=== PATIENT | male | born 2000 | race Caucasian/White ===

== ENCOUNTER 2021-05-19 23:44 | Inpatient (IN) | payer SELFPAY ==
[~2021-05-19] VITALS: Ht 182.9 cm; Wt 137.9 kg
[2021-05-19] MEDS ORDERED: ACETAMINOPHEN 325MG TABLET PO STA (23:59)
[2021-05-20] MEDS ORDERED: CEFTRIAXONE 1 G PREMIX 50 ML IV ONE
[2021-05-20] MEDS ORDERED: SODIUM CHLORIDE 0.9% 1,000 ML IV ONE
[2021-05-20] MEDS ORDERED: AZITHROMYCIN 500 MG in DEXT 5% WATER 250 ML IV ONE
[2021-05-20 00:29] LABS: BASOPHILS % 0.4 % (0.0-2.0); HEMATOCRIT. 44.8 % (42.0-52.0); HEMOGLOBIN. 15.3 g/dL (14.0-18.0); LYMPHOCYTES % 9.4 % (20.0-50.0); MEAN CORPUSCULAR HEMOGLOBIN 27.7 pg (28.0-32.0); MEAN CORPUSCULAR VOLUME 81.1 fL (80.0-94.0); MEAN PLATELET VOLUME 7.3 fl (7.4-10.4); MONOCYTES % 3.7 % (2.0-8.0); NEUTROPHILS % 86.5 % (40.0-76.0); PLATELET 366 x1000/uL (130-400); RED BLOOD CELL COUNT 5.52 mill/uL (4.7-6.1); RED CELL DISTRIBUTION WIDTH 13.5 % (11.6-14.6)
[2021-05-20 00:38] LABS: CHLORIDE 98 mEq/L (98-107)
[2021-05-20] MEDS ORDERED: ACETAMINOPHEN 325MG TABLET PO PRN ×2 (06:30)
[2021-05-20] MEDS ORDERED: CLONIDINE 0.1MG TABLET PO PRN (06:30)
[2021-05-20] MEDS ORDERED: ALBUTEROL 6.7GM HFA INHALER ORI PRN (06:30)
[2021-05-20] MEDS ORDERED: ONDANSETRON HCL 4MG/2ML INJ IV PRN (06:30)
[2021-05-20] MEDS ORDERED: NITROGLYCERIN 0.4MG TABLET SL SL PRN (06:30)
[2021-05-20] MEDS ORDERED: MAGNESIUM/ALUMINUM HYDROXIDE/SIMETHICONE 30ML UDC PO PRN (06:30)
[2021-05-20] MEDS ORDERED: KETOROLAC 15MG/ML VIAL IV PRN (06:30)
[2021-05-20] MEDS ORDERED: AZITHROMYCIN 500 MG in DEXT 5% WATER 250 ML IV SCH (07:00)
[2021-05-20 07:16] LABS: FOLIC ACID (FOLATE) SERUM >20 ng/mL ng/mL (>5.38)
[2021-05-20 07:27] LABS: VITAMIN B12 SERUM 663 pg/mL (211-911)
[2021-05-20] MEDS ORDERED: CEFTRIAXONE 1 G PREMIX 50 ML IV SCH (09:00)
[2021-05-20] MEDS: FAMOTIDINE 20MG TABLET PO SCH ×2 (09:51→21:54)
[2021-05-20] MEDS: GUAIFENESIN/DM 600MG/30MG ER TAB 12HR PO SCH ×2 (09:51→21:53)
[2021-05-20] MEDS: CHOLECALCIFEROL (D3) 1000 UNIT TABLET PO SCH (09:51)
[2021-05-20] MEDS: GUAIFENESIN 200MG/10ML SUGAR FREE UDC PO PRN (09:52)
[2021-05-20] MEDS: ASCORBIC ACID 500 MG TABLET PO SCH ×2 (09:52→21:54)
[2021-05-20] MEDS: ZINC SULFATE 220 MG ( 50 ) CAPSULE PO SCH (09:52)
[2021-05-20 12:00] VITALS: BP 115/65
[2021-05-20 16:00] VITALS: BP 113/57
[2021-05-20 18:50] LABS: CREATINE KINASE MB FRACTION 5.1 ng/mL (0.5-3.6)
[2021-05-20 20:00] VITALS: BP 129/68
[2021-05-20] MEDS ORDERED: ZOLPIDEM TARTRATE 5MG TABLET PO PRN (21:00)
[2021-05-20] MEDS: CEFTRIAXONE 1,000 MG in DEXTROSE 5% WATER 50 ML IV SCH (21:54)
[2021-05-20] MEDS: DEXAMETHASONE 10 MG/ML VIAL IV SCH (22:45)
[2021-05-20 23:32] LABS: CREATINE KINASE MB FRACTION 4.5 ng/mL (0.5-3.6)
[2021-05-20 23:49] LABS: CREATINE KINASE 4509 IU/L (39-308)
[2021-05-21] VITALS: BP 122/67
[2021-05-21] MEDS: ALBUTEROL 6.7GM HFA INHALER ORI SCH ×4 (00:03→18:56)
[2021-05-21 04:00] VITALS: BP 120/72
[2021-05-21] MEDS: AZITHROMYCIN 500 MG in DEXT 5% WATER 250 ML IV SCH (05:57)
[2021-05-21] MEDS: GUAIFENESIN 200MG/10ML SUGAR FREE UDC PO PRN (06:05)
[2021-05-21 06:30] LABS: CHLORIDE 102 mEq/L (98-107)
[2021-05-21 06:36] LABS: PHOSPHORUS 3.8 mg/dL (2.5-4.9)
[2021-05-21 06:47] LABS: BASOPHILS % 0.1 % (0.0-2.0); HEMATOCRIT. 42.5 % (42.0-52.0); HEMOGLOBIN. 14.2 g/dL (14.0-18.0); LYMPHOCYTES % 9.6 % (20.0-50.0); MEAN CORPUSCULAR HEMOGLOBIN 28.2 pg (28.0-32.0); MEAN CORPUSCULAR VOLUME 84.1 fL (80.0-94.0); MONOCYTES % 3.3 % (2.0-8.0); PLATELET 417 x1000/uL (130-400); RED BLOOD CELL COUNT 5.05 mill/uL (4.7-6.1)
[2021-05-21 08:00] VITALS: BP 110/65
[2021-05-21] MEDS: DEXAMETHASONE 10 MG/ML VIAL IV SCH (09:27)
[2021-05-21] MEDS: CHOLECALCIFEROL (D3) 1000 UNIT TABLET PO SCH (09:27)
[2021-05-21] MEDS: GUAIFENESIN/DM 600MG/30MG ER TAB 12HR PO SCH ×2 (09:27→19:49)
[2021-05-21] MEDS: ZINC SULFATE 220 MG ( 50 ) CAPSULE PO SCH (09:27)
[2021-05-21] MEDS: FAMOTIDINE 20MG TABLET PO SCH ×2 (09:27→19:49)
[2021-05-21] MEDS: ASCORBIC ACID 500 MG TABLET PO SCH ×2 (09:27→19:49)
[2021-05-21 12:00] VITALS: BP 107/68
[2021-05-21 16:00] VITALS: BP 106/55
[2021-05-21] MEDS: CEFTRIAXONE 1,000 MG in DEXTROSE 5% WATER 50 ML IV SCH (19:49)
[2021-05-21 20:00] VITALS: BP 98/50
[2021-05-22] MEDS: ALBUTEROL 6.7GM HFA INHALER ORI SCH ×4 (05:43→19:55)
[2021-05-22] MEDS: AZITHROMYCIN 500 MG in DEXT 5% WATER 250 ML IV SCH (05:43)
[2021-05-22 08:00] VITALS: BP 107/56
[2021-05-22] MEDS: ZINC SULFATE 220 MG ( 50 ) CAPSULE PO SCH (08:02)
[2021-05-22] MEDS: ASCORBIC ACID 500 MG TABLET PO SCH ×2 (08:03→19:54)
[2021-05-22] MEDS: CHOLECALCIFEROL (D3) 1000 UNIT TABLET PO SCH (08:03)
[2021-05-22] MEDS: FAMOTIDINE 20MG TABLET PO SCH ×2 (08:03→19:54)
[2021-05-22] MEDS: DEXAMETHASONE 10 MG/ML VIAL IV SCH (08:03)
[2021-05-22] MEDS: GUAIFENESIN/DM 600MG/30MG ER TAB 12HR PO SCH ×2 (08:03→19:54)
[2021-05-22 11:14] LABS: CREATINE KINASE 867 IU/L (39-308)
[2021-05-22 12:00] VITALS: BP 113/65
[2021-05-22 16:00] VITALS: BP 104/59
[2021-05-22] MEDS: CEFTRIAXONE 1,000 MG in DEXTROSE 5% WATER 50 ML IV SCH (19:54)
[2021-05-23] MEDS: ALBUTEROL 6.7GM HFA INHALER ORI SCH ×2 (00:14→05:32)
[2021-05-23 04:00] VITALS: BP 96/45
[2021-05-23] MEDS: AZITHROMYCIN 500 MG in DEXT 5% WATER 250 ML IV SCH (05:32)
[2021-05-23 05:51] LABS: CHLORIDE 104 mEq/L (98-107)
[2021-05-23 06:11] LABS: BASOPHILS % 0.2 % (0.0-2.0); EOSINOPHILS % 0.1 % (0.0-5.0); HEMATOCRIT. 40.8 % (42.0-52.0); HEMOGLOBIN. 13.9 g/dL (14.0-18.0); LYMPHOCYTES % 8.8 % (20.0-50.0); MEAN CORPUSCULAR VOLUME 82.6 fL (80.0-94.0); MEAN PLATELET VOLUME 7.7 fl (7.4-10.4); MONOCYTES % 5.5 % (2.0-8.0); NEUTROPHILS % 85.4 % (40.0-76.0); PLATELET 591 x1000/uL (130-400); RED BLOOD CELL COUNT 4.94 mill/uL (4.7-6.1)
[2021-05-23 08:00] VITALS: BP 103/56
[2021-05-23] MEDS: GUAIFENESIN/DM 600MG/30MG ER TAB 12HR PO SCH ×2 (08:43→20:41)
[2021-05-23] MEDS: FAMOTIDINE 20MG TABLET PO SCH ×2 (08:43→20:41)
[2021-05-23] MEDS: CHOLECALCIFEROL (D3) 1000 UNIT TABLET PO SCH (08:43)
[2021-05-23] MEDS: DEXAMETHASONE 10 MG/ML VIAL IV SCH (08:43)
[2021-05-23] MEDS: ZINC SULFATE 220 MG ( 50 ) CAPSULE PO SCH (08:43)
[2021-05-23] MEDS: ASCORBIC ACID 500 MG TABLET PO SCH ×2 (08:43→20:41)
[2021-05-23 12:00] VITALS: BP 113/61
[2021-05-23 16:00] VITALS: BP 110/69
[2021-05-23 20:00] VITALS: BP 113/68
[2021-05-23] MEDS: CEFTRIAXONE 1,000 MG in DEXTROSE 5% WATER 50 ML IV SCH (20:40)
[2021-05-23] MEDS: GUAIFENESIN 200MG/10ML SUGAR FREE UDC PO PRN (20:48)
[2021-05-24] VITALS: BP 103/53
[2021-05-24 04:00] VITALS: BP 105/65
[2021-05-24 08:00] VITALS: BP 107/60
[2021-05-24] MEDS: ZINC SULFATE 220 MG ( 50 ) CAPSULE PO SCH (08:08)
[2021-05-24] MEDS: GUAIFENESIN 200MG/10ML SUGAR FREE UDC PO PRN ×2 (08:08→17:08)
[2021-05-24] MEDS: ASCORBIC ACID 500 MG TABLET PO SCH ×2 (08:09→20:18)
[2021-05-24] MEDS: GUAIFENESIN/DM 600MG/30MG ER TAB 12HR PO SCH ×2 (08:09→20:18)
[2021-05-24] MEDS: DEXAMETHASONE 10 MG/ML VIAL IV SCH (08:09)
[2021-05-24] MEDS: FAMOTIDINE 20MG TABLET PO SCH ×2 (08:09→20:18)
[2021-05-24] MEDS: CHOLECALCIFEROL (D3) 1000 UNIT TABLET PO SCH (08:09)
[2021-05-24] MEDS: ALBUTEROL 6.7GM HFA INHALER ORI SCH ×2 (11:46→17:08)
[2021-05-24 12:00] VITALS: BP 108/61
[2021-05-24 16:00] VITALS: BP 106/63
[2021-05-24] MEDS ORDERED: LOPERAMIDE HCL 2MG CAPSULE PO PRN (17:00)
[2021-05-24 20:00] VITALS: BP 114/59
[2021-05-24] MEDS: CEFTRIAXONE 1,000 MG in DEXTROSE 5% WATER 50 ML IV SCH (20:18)
[2021-05-25] VITALS: BP 113/68
[2021-05-25] MEDS: ALBUTEROL 6.7GM HFA INHALER ORI SCH ×4 (00:30→17:03)
[2021-05-25 04:00] VITALS: BP 115/65
[2021-05-25 07:58] VITALS: BP 118/67
[2021-05-25] MEDS: GUAIFENESIN 200MG/10ML SUGAR FREE UDC PO PRN (08:00)
[2021-05-25] MEDS: CHOLECALCIFEROL (D3) 1000 UNIT TABLET PO SCH (08:00)
[2021-05-25] MEDS: FAMOTIDINE 20MG TABLET PO SCH ×2 (08:00→20:39)
[2021-05-25] MEDS: ZINC SULFATE 220 MG ( 50 ) CAPSULE PO SCH (08:00)
[2021-05-25] MEDS: DEXAMETHASONE 10 MG/ML VIAL IV SCH (08:00)
[2021-05-25] MEDS: ASCORBIC ACID 500 MG TABLET PO SCH ×2 (08:00→20:38)
[2021-05-25] MEDS: GUAIFENESIN/DM 600MG/30MG ER TAB 12HR PO SCH ×2 (08:00→20:39)
[2021-05-25 12:00] VITALS: BP 108/62
[2021-05-25 16:00] VITALS: BP 112/63
[2021-05-25 20:00] VITALS: BP 116/60
[2021-05-25] MEDS: CEFTRIAXONE 1,000 MG in DEXTROSE 5% WATER 50 ML IV SCH (20:38)
[2021-05-26] VITALS: BP 115/63
[2021-05-26 04:00] VITALS: BP 107/54
[2021-05-26] MEDS: ALBUTEROL 6.7GM HFA INHALER ORI SCH ×4 (05:30→17:44)
[2021-05-26 06:58] LABS: HEMATOCRIT. 43.1 % (42.0-52.0); HEMOGLOBIN. 14.5 g/dL (14.0-18.0); MEAN CORPUSCULAR HEMOGLOBIN 27.9 pg (28.0-32.0); MEAN CORPUSCULAR VOLUME 83.2 fL (80.0-94.0); MEAN PLATELET VOLUME 7.1 fl (7.4-10.4); PLATELET 536 x1000/uL (130-400); RED BLOOD CELL COUNT 5.18 mill/uL (4.7-6.1); RED CELL DISTRIBUTION WIDTH 13.2 % (11.6-14.6)
[2021-05-26 07:01] LABS: CHLORIDE 105 mEq/L (98-107)
[2021-05-26 08:00] VITALS: BP 108/58
[2021-05-26] MEDS: CHOLECALCIFEROL (D3) 1000 UNIT TABLET PO SCH (08:01)
[2021-05-26] MEDS: ASCORBIC ACID 500 MG TABLET PO SCH ×2 (08:02→20:52)
[2021-05-26] MEDS: ZINC SULFATE 220 MG ( 50 ) CAPSULE PO SCH (08:02)
[2021-05-26] MEDS: GUAIFENESIN/DM 600MG/30MG ER TAB 12HR PO SCH ×2 (08:02→20:52)
[2021-05-26] MEDS: FAMOTIDINE 20MG TABLET PO SCH ×2 (08:02→20:52)
[2021-05-26] MEDS: DEXAMETHASONE 10 MG/ML VIAL IV SCH (08:02)
[2021-05-26 12:00] VITALS: BP 110/57
[2021-05-26 16:00] VITALS: BP 107/58
[2021-05-26 17:56] LABS: PLATELET ESTIMATE INCREASED
[2021-05-26 20:00] VITALS: BP 110/59
[2021-05-27] VITALS: BP 108/71
[2021-05-27 04:00] VITALS: BP 115/73
[2021-05-27] MEDS: ALBUTEROL 6.7GM HFA INHALER ORI SCH ×4 (06:02→17:20)
[2021-05-27 08:00] VITALS: BP 102/64
[2021-05-27] MEDS: FAMOTIDINE 20MG TABLET PO SCH ×2 (10:06→22:06)
[2021-05-27] MEDS: CHOLECALCIFEROL (D3) 1000 UNIT TABLET PO SCH (10:06)
[2021-05-27] MEDS: GUAIFENESIN/DM 600MG/30MG ER TAB 12HR PO SCH ×2 (10:06→22:05)
[2021-05-27] MEDS: DEXAMETHASONE 10 MG/ML VIAL IV SCH (10:06)
[2021-05-27] MEDS: ZINC SULFATE 220 MG ( 50 ) CAPSULE PO SCH (10:07)
[2021-05-27] MEDS: ASCORBIC ACID 500 MG TABLET PO SCH ×2 (10:07→22:06)
[2021-05-27 12:00] VITALS: BP 109/63
[2021-05-27 16:00] VITALS: BP 111/65
[2021-05-27 20:00] VITALS: BP 112/55
[2021-05-28] VITALS: BP 100/65
[2021-05-28] MEDS: ALBUTEROL 6.7GM HFA INHALER ORI SCH ×4 (00:09→18:39)
[2021-05-28 04:00] VITALS: BP 112/53
[2021-05-28 08:00] VITALS: BP 111/58
[2021-05-28] MEDS: ASCORBIC ACID 500 MG TABLET PO SCH ×2 (08:49→20:41)
[2021-05-28] MEDS: ZINC SULFATE 220 MG ( 50 ) CAPSULE PO SCH (08:49)
[2021-05-28] MEDS: DEXAMETHASONE 10 MG/ML VIAL IV SCH (08:49)
[2021-05-28] MEDS: CHOLECALCIFEROL (D3) 1000 UNIT TABLET PO SCH (08:49)
[2021-05-28] MEDS: GUAIFENESIN/DM 600MG/30MG ER TAB 12HR PO SCH ×2 (08:49→20:41)
[2021-05-28] MEDS: FAMOTIDINE 20MG TABLET PO SCH ×2 (08:49→20:41)
[2021-05-28 12:00] VITALS: BP 98/57
[2021-05-28 16:00] VITALS: BP 95/59
[2021-05-28 20:00] VITALS: BP 109/53
[2021-05-28] MEDS: GUAIFENESIN 200MG/10ML SUGAR FREE UDC PO PRN (20:50)
[2021-05-29] MEDS: ALBUTEROL 6.7GM HFA INHALER ORI SCH ×4 (00:17→17:29)
[2021-05-29 00:40] VITALS: BP 101/61
[2021-05-29] MEDS: GUAIFENESIN 200MG/10ML SUGAR FREE UDC PO PRN ×2 (02:15→21:15)
[2021-05-29 04:00] VITALS: BP 108/57
[2021-05-29 08:00] VITALS: BP 101/53
[2021-05-29] MEDS: FAMOTIDINE 20MG TABLET PO SCH ×2 (08:49→21:10)
[2021-05-29] MEDS: ZINC SULFATE 220 MG ( 50 ) CAPSULE PO SCH (08:49)
[2021-05-29] MEDS: ASCORBIC ACID 500 MG TABLET PO SCH ×2 (08:49→21:10)
[2021-05-29] MEDS: GUAIFENESIN/DM 600MG/30MG ER TAB 12HR PO SCH ×2 (08:49→21:10)
[2021-05-29] MEDS: CHOLECALCIFEROL (D3) 1000 UNIT TABLET PO SCH (08:49)
[2021-05-29] MEDS: DEXAMETHASONE 10 MG/ML VIAL IV SCH (08:50)
[2021-05-29 11:30] VITALS: BP 115/67
[2021-05-29 16:00] VITALS: BP 111/58
[2021-05-29 20:00] VITALS: BP 125/72
[2021-05-30] VITALS: BP 102/47
[2021-05-30] MEDS: ALBUTEROL 6.7GM HFA INHALER ORI SCH ×2 (00:49→06:37)
[2021-05-30 04:00] VITALS: BP 105/42
[2021-05-30] MEDS: GUAIFENESIN 200MG/10ML SUGAR FREE UDC PO PRN (06:40)
[2021-05-30 08:00] VITALS: BP 105/42
[2021-05-30] MEDS: DEXAMETHASONE 10 MG/ML VIAL IV SCH (08:39)
[2021-05-30] MEDS: GUAIFENESIN/DM 600MG/30MG ER TAB 12HR PO SCH (08:39)
[2021-05-30] MEDS: ZINC SULFATE 220 MG ( 50 ) CAPSULE PO SCH (08:39)
[2021-05-30] MEDS: FAMOTIDINE 20MG TABLET PO SCH (08:39)
[2021-05-30] MEDS: ASCORBIC ACID 500 MG TABLET PO SCH (08:39)
[2021-05-30] MEDS: CHOLECALCIFEROL (D3) 1000 UNIT TABLET PO SCH (08:39)
[2021-05-30 11:54] VITALS: BP 105/42
[2021-05-30 12:00] VITALS: BP 119/73
== END 2021-05-30 14:50 | disposition home or self-care (01) | DRG 720 ==
LOC: ER 23:44 → 7WST 05-20 04:04 → ENRESERV 05-20 07:19 → 7EST 05-29 09:18
PROVIDERS: ADMIT Internal Medicine; ATTEND Internal Medicine
DX: A41.89 Other specified sepsis (principal); J96.01 Acute respiratory failure with hypoxia; J12.82 Pneumonia due to coronavirus disease 2019; E44.1 Mild protein-calorie malnutrition; U07.1 COVID-19; E83.51 Hypocalcemia; F12.90 Cannabis use, unspecified, uncomplicated; R65.20 Severe sepsis without septic shock; R74.01 Elevation of levels of liver transaminase levels; E66.9 Obesity, unspecified; Z68.41 Body mass index [BMI] 40.0-44.9, adult; Z78.9 Other specified health status; Z82.49 Family history of ischemic heart disease and other diseases of the circulatory system
CPT/HCPCS: 36415; 71045; 80048; 80053; 80061; 82550; 82553; 82607; 82728; 82746; 83036; 83540; 83550; 83605; 83615; 83735; 83880; 84100; 84145; 84484; 85025; 85379; 86140; 87426; 93005; 97161; 99291; J0456; J0696; J1100; J7030; J7040; J7060; U0003; U0005